=== PATIENT | male | born 1955 | race Caucasian/White ===

== ENCOUNTER → 2017-03-29 | Outpatient (CLI) | payer BC | END | disposition home or self-care (01) | LOC: CDC 09:00 | DX: K40.90 Unilateral inguinal hernia, without obstruction or gangrene, not specified as recurrent (principal) | CPT/HCPCS: 93000 ==

== ENCOUNTER 2017-04-20 06:23 | Day surgery (SDC) | payer BC ==
[~2017-04-20] VITALS: Ht 177.8 cm; Wt 99.8 kg
[~2017-04-20 06:23] MED LIST: ACID CONTROL150 MG PO; ANORO ELLIPTA1 EACH IH; COZAAR25 MG PO; LIPITOR40 MG PO
[2017-04-20 06:48] VITALS: BP 131/72
[2017-04-20] MEDS ORDERED: PERCOCET 5/31 TABLET PO (10:42)
[2017-04-20] MEDS ORDERED: COLACE100 MG PO (10:42)
[2017-04-20 12:35] VITALS: BP 120/78
[2017-04-20 13:36] VITALS: BP 142/77
== END 2017-04-20 13:45 | disposition home or self-care (01) ==
LOC: SDC 06:23
PROC: 0YU54JZ Supplement Right Inguinal Region with Synthetic Substitute, Percutaneous Endoscopic Approach (ICD-10-PCS; principal; 2017-04-20)
DX: K40.90 Unilateral inguinal hernia, without obstruction or gangrene, not specified as recurrent (principal); E78.5 Hyperlipidemia, unspecified; G47.33 Obstructive sleep apnea (adult) (pediatric); F17.200 Nicotine dependence, unspecified, uncomplicated; I10 Essential (primary) hypertension; K21.9 Gastro-esophageal reflux disease without esophagitis; E66.9 Obesity, unspecified; Z68.31 Body mass index [BMI] 31.0-31.9, adult
CPT/HCPCS: 94002; C1727; C1781; J0131; J0330; J0690; J1100; J1170; J1885; J2250; J2405; J2710; J3010